=== PATIENT | female | born 2005 | race Caucasian/White ===

== ENCOUNTER 2024-02-13 15:25 | Outpatient (AMB) | payer BC, SELFPAY ==
--- NOTE | 2024-02-13 15:31 | AM.OFFWIN_ITS ---
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 She states sometimes the cough is dry and sometimes it is productive, when it is productive she coughs a greenish colored sputum. She denies any fevers, ear pain, sinus pain; she says sometimes when she coughs it does give her a headache She states nobody at home is sick. She has not tested for COVID. She has been taking Mucinex twice a day. She denies a history of asthma and is not a current smoker. She states she has been using a Ventolin inhaler that she borrowed from her mother and it seems to help at least for a couple of hours. She does not have a nebulizer machine at home. [facility] Social History Patient Tobacco Use Status: Never used Tobacco Review of Systems Const All systems reviewed & are unremarkable except as noted in HPI and below Physical Exam Const General: cooperative, healthy appearing, comfortable and no acute distress Orientation/consciousness: patient oriented x3 Limitations: no limitations HEENT Head: Yes normal to inspection Ears: hearing grossly normal bilaterally, external ears normal and TM's normal bilaterally General nose exam: Normal external nose present, Normal nares present and No nasal discharge present Face and sinus: Yes normal facial exam and Yes sinuses nontender Mouth: Normal oral and palatal mucosa present and moist mucous membranes Throat: Yes tonsils normal, Yes uvula midline and Yes posterior oropharynx abnormal (Erythema) Eyes General: appearance normal, both eyes and all related structures Neck Neck: Yes normal visual inspection Resp Effort & Inspection: normal respiratory effort, able to speak in complete sentences, no respiratory distress, not tachypneic, no tripod positioning and no use of accessory muscles Auscultation: wheezes expiratory wheezes, inspiratory wheezes, scattered wheezes and throughout Cardio Rate: regular rate Rhythm: regular rhythm Heart sounds: normal S1 and S2 Skin General skin exam: no rashes or lesions noted Neuro General: patient oriented x3 Extrem General: Yes normal to inspection and Yes no clubbing, cyanosis or edema Office Procedures Nebulizer Treatment Nebulizer Treatment [id number]-Ntseyzsyh/MDI RX initial, or Nebulizer Subsequent Treatment Nebulizer Treatment Nebulizer Treatment 80017-Rmyesueyx/MDI RX initial, or Nebulizer Subsequent Treatment Office Meds ipratropium 0.5 mg-albuterol 3 mg (2.5 mg base)/3 mL nebulization soln Performing Provider: Isabelle Bills PA-C Performing Location: [facility] Administered by: Isabelle Bills PA-C on 02/13/24 15:50 Dose Route Admin Location Dispensed Lot Number Expiration Date NDC Wet Roller 3 mL inhalation office 3 mL [id number] 06/26/25 95501-823-79 [employer] Assessment & Plan Assessment & Plan (1) Lower respiratory infection (e.g., bronchitis, pneumonia, pneumonitis, pulmonitis): Code(s): J22 - Unspecified acute lower respiratory infection Plan: Vital signs are stable patient is well-appearing however lung sounds were very wheezy both inspiratory and expiratory so I did give a DuoNeb in office with great relief. Also sending respiratory panel. Sent prednisone burst and ventolin inhaler, patient should continue to use her Ventolin inhaler as needed Plan See above Orders: Orders AMB Nebulizer Treatment Today J22 - Unspecified acute lower respiratory infection Resp Pathogen Panel - [facility] Today J06.9 - Acute upper respiratory infection, unspecified Medications: New prednisone 40 mg (2 x 20 mg) PO DAILY 10 tabs 0RF albuterol sulfate 90 mcg/actuation (Ventolin HFA) 2 puffs inhalation Q4-6H PRN 8.5 grams 0RF shortness of breath or wheezing Coding Level of Care Code New Pt Level 4 (36040) Diagnoses Lower respiratory infection (e.g., bronchitis, pneumonia, pneumonitis, pulmonitis) J22 CPT Codes Nebulizer Treatment - Nebulizer Treatment, initial or subsequent: 42789- Nebulizer/MDI RX initial, or Nebulizer Subsequent Treatment ([id number]) Nebulizer Treatment - Nebulizer Treatment, initial or subsequent: [id number]-Bfsdufbx r/MDI RX initial, or Nebulizer Subsequent Treatment ([id number])
[2024-02-13 15:33] VITALS: BP 118/70; PULSE 83; TEMP 36.9; O2SAT 98; BMI 27.5
== END 2024-02-13 16:09 | disposition home or self-care (01) ==
PROVIDERS: PCP Pediatrics; Visit Provider Physician Assistant
DX: J22 Unspecified acute lower respiratory infection (principal)

== ENCOUNTER 2024-07-14 14:45 | Outpatient (AMB) | payer BC, SELFPAY ==
[2024-07-14 15:06] VITALS: BP 114/70; PULSE 81; TEMP 36.8; O2SAT 97; BMI 30.3
--- NOTE | 2024-07-14 15:06 | MHC.OFFWIV ---
Intake Vital Signs 07/14/24 15:06 Height 5 ft 4 in Weight 176 lb 6 oz BMI 30.3 BP 114/70 Blood Pressure Location Lt brachial Position Sitting Pulse 81 Pulse Source Pulse Oximeter Temp 98.2 F Temp Source Oral Pulse Oximetry (%) 97 Oxygen Delivery Method Room Air Intake Visit Reasons: EP-skin irritation Intake Note: Pt presents to the office today for c/o skin irritation on her left wrist. Pt states she noticed it last night but denies any itchiness. Pt states where the irritation is is where she wears her apple watch. Patient Tobacco Use Status: Never used Tobacco Allergies No Known Allergies Allergy (Verified 07/14/24 15:06) Medication List - Last Reconciled 07/14/24 by Linda Jaffe MD albuterol sulfate 90 mcg/actuation (Ventolin HFA) 2 puffs inhalation Q4-6H PRN methylphenidate HCl ER 36 mg PO QAM norelgestromin-ethin.estradiol 150-35 mcg/24 hr (Zafemy) patches transdermal HPI EP-skin irritation HPI Details History - The patient is a 18-year-old female presenting with skin irritation. - The irritation began a couple of days ago and is localized to the area where her watch strap is worn. - She reports dry skin as a general condition. - There is no associated pruritus noted by the patient. 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 Problem List - Contact dermatitis - Possible fungal infection Patient Instructions - Apply the prescribed cream nightly until the rash resolves. - If the rash recurs, take a one-week break and then reapply the cream for two weeks. - Discontinue use once the rash is cleared. Review of Systems - General: No fever no chills - Neurological: No headaches no dizziness - Ear nose throat: No sore throat no hearing difficulty no ear pain - Cardiovascular: No syncope, no chest pain, no palpitations - Gastrointestinal: No nausea vomiting or diarrhea Physical Exam General: No acute distress HEENT: No acute findings Neck: Supple Respiratory system: Able to talk in full sentences, Extremities: No new findings OPHTHALMOLOGIST RETINA SPECIALIST: Alert awake oriented x3 motor sensory intact Skin: Irritation noted left wrist anterior aspect round patch size of quarter and smaller next to it, PFSH Social History Patient Tobacco Use Status: Never used Tobacco Physical Exam Vital Signs: Last Vital Signs Temp 98.2 F 07/14/24 15:06 Pulse 81 07/14/24 15:06 BP 114/70 07/14/24 15:06 Pulse Ox 97 07/14/24 15:06 Oxygen Delivery Method Room Air 07/14/24 15:06 BMI result Body Mass Index 30.3 Assessment & Plan Assessment & Plan (1) Skin rash: Code(s): R21 - Rash and other nonspecific skin eruption Plan History - The patient is a 18-year-old female presenting with skin irritation. - The irritation began a couple of days ago and is localized to the area where her watch strap is worn. - She reports dry skin as a general condition. - There is no associated pruritus noted by the patient. 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 Problem List - Contact dermatitis - Possible fungal infection Patient Instructions - Apply the prescribed cream nightly until the rash resolves. - If the rash recurs, take a one-week break and then reapply the cream for two weeks. - Discontinue use once the rash is cleared. Medications: New clotrimazole-betamethasone 1-0.05 % 1 appl topical ONCE 30 days 45 grams 0RF Coding Level of Care Code Est Pt Level 3 (65375) Diagnoses Skin rash R21
--- OUTSIDE RECORDS SUMMARY | 2024-07-14 17:32 | XMS_ITS | Clinical Summary ---
Author Organization [facility] Address [address] [place] [phone] Phone Care Team Providers Care Outsole Cementer Machine Name Role Phone Tracie Bill MD Primary Care Provider [phone] Allergies Active Allergy Reactions Criticality Noted Date Comments Pineapple Hives 09/19/2022 Medications lactase 3000 units tablet Take 3,000 Units by mouth 3 (three) times a day with meals. Active norelgestromin-et hinyl estradiol (Zafemy) 150-35 MCG/24HRIndicatio ns:DUB (dysfunctional uterine bleeding) Place 1 patch on the skin once a week. 3 patch 12 4 Active albuterol HFA 108 (90 Base) MCG/ACT inhalerIndication s:Mild intermittent asthma without complication INHALE 2 PUFFS INTO THE LUNG EVERY 4 HOURS NEEDED FOR WHEEZING 18 g 4 Active valACYclovir 500 MG tabletIndications :Recurrent herpes labialis Take 1 tablet (500 mg total) by mouth 2 (two) times a day. 1 tablet 5 Active Methylphenidate HCl ER 36 MG tablet sustained-release 24 hourIndications:A ttention deficit hyperactivity disorder (ADHD), predominantly inattentive type Take 36 mg by mouth every morning. 30 tablet 5 08/02/19 25 Active Methylphenidate HCl ER 36 MG tablet sustained-release 24 hourIndications:A ttention deficit hyperactivity disorder (ADHD), predominantly inattentive type Take 36 mg by mouth every morning. 30 tablet 5 07/03/19 25 Discontin ued(Reord er) Active Problems Problem Noted Date Diagnosed Date Chronic upper back pain 11/20/2022 Overview (11/26/2023): Last Assessment & Plan: Flipped off of horse 2011 and upper back has bothered her since then and is getting worse. Lower back improved with pt but still with upper back pain. -referred to [facility] for further eval/w/u Attention deficit hyperactiv ity disorder (ADHD), predominantly inattentive type 07/17/2022 Overview (01/06/2024): 08/19-concerta 18mg 09/18-increased concerta 36mg Assessment & Plan (01/06/2024 2:14 PM EDT): Doing amazing on the concerta still. No longer struggling to pay attention, concentrate, focus to get her work done, and keep up. Helping her at home and at work! Much less anxious now as result b/c she can be more productive. Appetite and sleep are baseline. taking it most days unless gets up late and doesn't have a lot going on. Carrying her through her day at work-lasts about 10 hrs -cont concerta 36mg daily prn; feels like this is a good dose for now -cont to work on behavioral strategies -cont to work on regular meals and sleep schedule -cont with weekly counseling -fu 3 months or sooner if concerns Mild intermittent asthma without complication Overview (11/26/2023): Uses 2020 with pneumonia Last Assessment & Plan: Used mom's inhaler over winter when went to barn b/c chest tightness and wheezing. No sob, wheezing, cough with activity, sleep or at barn in months -cont albuterol every 4 hours prn -sx therapy -call if sxs or albuterol use>2x/wk or other concerns Weight loss 01/30/2021 Overview (11/26/2023): Last Assessment & Plan: Lost 14 pounds in about 3 weeks- teen notes more active job and also sick off and on for weeks Reports eating 3 meals daily, no restriction Continue healthy balanced diet Recommend recheck in 1-2 months with ADHD med recheck but sooner if concerns Teen in agreement of plan Recurrent herpes labialis 10/15/2019 Overview (11/26/2023): Last Assessment & Plan: Went a really long time w/o it but if bites her lips she tends to get them, certain lip products or doesn't use sunscreen on her lips. Valtrex is helping and shortens them. Gets them 1x every 2 months -cont valcyclovir 500mg bid for 3 days at first signs (even if mild) -avoid triggers miguel sun exposure as much as possible -ok to cont abreva topically prn -call if becomes more frequent or other concerns DUB (dysfunctional uterine bleeding) 05/22/2018 Overview (11/26/2023): 05/17-menses monthly but heavy bleeding and cramps w/ prolonged bleeding; nl cbc and tfs 01/14; start ocp 09/14-not much better with breakthrough bleeding; changed to orthotricycline 07/16-lot of bleeding btwn and prolonged on orthotricyclen; nl labs; to switch to ocella; if persists after 3 month on, will refer signal repairer 08/18-wants to switch to the patch b/c can't remember to take ocps consistently Last Assessment & Plan: Doing well on patch and remembering to change it. due for menses for first time on it next wk. Not interested in implanon or iud at this point -cont with orthoevera -cont condom use -will cont to monitor Fatigue 02/17/2018 Overview (11/26/2023): 02/13-since end november; ?etiology; labs nl 05/17-still tired, hasn't worked on sleep hygiene; napping still; not wearing hearing aid Last Assessment & Plan: Still tired but not as bad as it was -reassurance -cont to work on regular sleep schedule -labs as ordered -fu pending results Anxiety 05/13/2017 Overview (01/06/2024): Noted 05/16-most likely situational due to parental separation and brother/Dad discord Assessment & Plan (01/06/2024 2:12 PM EDT): Anxiety has been really good. Some days feels jittery miguel if has coffee and meds only - is really noticeable if goes to therapy or if goes to a place with lots of people (like 's recently with students back). Seeing Sushila weekly - helping. At [facility] [place]. Feels wonderful to have a quiet mind -see plan re: adhd -cont to work on behavioral strategies -continue weekly counseling -will monitor closely but consider further management if continues to be an issue despite focus improving Migraine without aura and wi thout status migrainosus, not intractable 05/13/2017 Overview (11/26/2023): 05/16: first noted Last Assessment & Plan: Very rarely happen at this point!!! Often more if dehydrated. Ibuprofen helps -cont with regular exercise, sleep schedule and push fluids -ibuprofen prn -call if sxs worsen Allergic rhinitis 04/08/2017 Overview (11/26/2023): 07/13-zyrtec prn Last Assessment & Plan: Stuffy all the time. Takes zyrtec daily over past several months. Ears bother on and off Spring can be the worse -flaring a bit now. ?allergic to hay - sneezes a lot and gets congested miguel if doing chores at barn. Zyrtec doesn't seem to be helping as much -cont allergy control measures -increase zyrtec to 1-2x/day prn; if still not helping; trial of claritan or roman to see if works better the zyrtec -call if sxs worsen or other concerns Decreased visual acuity 04/08/2017 Overview (11/26/2023): Wears glasses Last Assessment & Plan: Stable -cont with glasses -fu with eye doctor - overdue and to call to schedule Lactose intolerance 04/08/2017 Overview (11/26/2023): 07/13-uses lactaid Last Assessment & Plan: Not using lactaid regularly. Sometimes bothers her if has lot of ice cream. Does fine with cheese; doesn't consume a lot of dairy in general -cont lactose in small quantities as tolerated -lactaid pills prn -recommended calcium supplement with vit d -call if sxs worsen Sensorineural hearing loss (SNHL) of left ear Overview (11/26/2023): Hearing aid in left ear Last Assessment & Plan: Hasn't been in awhile. Not wearing hearing aids. per mom misses 30% of what people say. -encouraged her to use hearing aid and FM system if she has issues hearing -fu with audiology at [facility]-to schedule as hasn't been in several years -will cont to monitor and support Encounters Date Type Department Care Team Description 07/02/2024 Refill [facility] - [address] [address] Tracie Bill MD Attention deficit hyperactivity disorder (ADHD), predominantly inattentive type 05/21/2024 Telephone [facility] - [address] [address] Tracie Bill MD pls re-send ADHD med, patient was able to find it . 05/19/2024 Refill [facility] [address] [address] Tracie Bill MD Attention deficit hyperactivity disorder (ADHD), predominantly inattentive type 05/04/2024 Refill [facility] [address] [place] [address] Tracie Bill MD Recurrent herpes labialis (Primary Dx) from Last 3 Months Immunizations Immunization Administration Dates Next Due DTaP 09/16/2008, 5,02/24/2004,12/26,2003 HPV, Quadrivalent 12/06/2016,03/19/2016,02/14/20 16 Hep A, ped/adol 12/06/2016,03/19/2016 Hep B, ped/adol 02/24/2004,2003,2003 Hib (PRP-T) 11/28/2004, 4,2003,10/25 Influenza, injectable, quadrivalent 03/02/2015 Influenza, injectable, quadr ivalent, preservative free 05/05/2021,04/20/2020,07/09/2019,03/14,02/14/2016 Influenza, injectable, trivalent 02/03/2013,11/09/2011,02/10/2009 Influenza, injectable, triva lent, preservative free 02/19/2014 MMR 03/13/2005,11/28/2004 Meningococcal Conj (Menactra) MCV4P 04/20/2020,0 08/30/2015 Pneumococcal Conjugate 03/13/2005,2003,2003,10/25 Polio 09/16/2008, 4,2003,10/25 Tdap 09/01/2014 Varicella 11/28/2011,03/13/2005 Social History Tobacco Use Types Packs/Day Years Used Date Smoking Tobacco: Never Assessed Comments Unknown Sex and Gender Information Value Date Recorded Sex Assigned at Not on file Legal Sex Female 4:28 PM EDT Gender Identity Not on file Sexual Orientation Not on file Last Filed Vital Signs Vital Sign Reading Time Taken Comments Blood Pressure 116/71 01/06/2024 1:47 PM EDT Pulse 96 01/06/2024 1:47 PM EDT Temperature 37.1 ??C (98.7 ??F) 01/06/2024 1:47 PM ED T Respiratory Rate - - Oxygen Saturation - - Inhaled Oxygen Concentration - - Weight 75 kg (165 lb 6.4 oz) 01/06/2024 1:47 PM EDT Height - - Body Mass Index - - Plan of Treatment Health Maintenance Due Date Last Done Comments Men B Vaccine (1 of 2 - Standard) 2019 Influenza Vaccines (#1) 2023 05/05/19, 04/20/2020, 07/09/2019, Additional history exists COVID-19 Vaccine (3 - 2023-2 5 season) 2023 08/28/2020, 08/06/2020 Chlamydia and Gonorrhea Screening 04/29/2024 DTaP,Tdap,and Td Vaccines (7 - Td or Tdap) 09/01/2024 09/01/2014, 09/16/2008, 11/28/2004, Additional history exists Hepatitis B Vaccines Completed 02/24/2004, 2003, 2003 HIB Vaccines Completed 11/28/2004, 01/28, 2003, Additional history exists MMR Vaccines Completed 03/13/2005, 11/28/2004 Pneumococcal Vaccine Completed 03/13/2005, 02/24/2004, 2003, Additional history exists IPV Vaccines Completed 09/16/2008, 01/28, 2003, Additional history exists Varicella Vaccines Completed 11/28/2011, 03/13/2005 HPV Vaccines Completed 12/06/2016, 02/28, 02/14/2016 Hepatitis A Vaccines Completed 12/06/2016, 03/19/20 16 Meningococcal Vaccine Completed 04/20/2020, 016 Insurance [facility] PPO Care Teams Outsole Cementer Machine Relationship Specialty Start Date End Date Tracie Bill MD [address] [place] [id number] PCP - General Pediatrics 11/26/23
--- OUTSIDE RECORDS SUMMARY | 2024-07-14 17:32 | XMS_ITS | Encounter Summary ---
Author Organization [facility] Address [address] [place] [address] Phone Care Team Providers Care Automobile Bumper Straightener Name Role Phone Tracie Bill MD Primary Care Provider [phone] Reason for Visit * Reason Onset Date Comments Med Refill 07/02/2024 Encounter Details Date Type Department Care Team (Late st Contact Info) Description 07/02/2024 Refill [facility] - [place] [address] [place] [address] Tracie Bill MD [address] [place] [address] Attention deficit hyperactivity disorder (ADHD), predominantly inattentive type Social History Tobacco Use Types Packs/Day Years Used Date Smoking Tobacco: Never Assessed Comments Unknown Sex and Gender Information Value Date Recorded Sex Assigned at Not on file Legal Sex Female 4:28 PM EDT Gender Identity Not on file Sexual Orientation Not on file documented as of this encounter Miscellaneous Notes * Telephone Encounter - Cleo Lira LPN - 07/02/2024 4:58 PM EST Refill requested for Berna???s: Methylphenidate HCl ER 36 MG tablet sustained-release 24 hour Refill request source: Phone call-- parent/guardian This medication was last refilled on 05/21/24. Last medication check or well visit: 01/06/24 Next appointment scheduled on none. An office visit is recommended. If visit recommended, message sent to appointment pool. [id number] - [place], [place] - [address] [place] [address] PCP: Tracie Bill MD documented in this encounter Plan of Treatment Not on file documented as of this encounter Visit Diagnoses Diagnosis Attention deficit hyperactivity disorder (ADHD), predominantly inattentive type documented in this encounter Care Teams Automobile Bumper Straightener Relationship Specialty Start Date End Date Tracie Bill MD [address] [place] [address] PCP - General Pediatrics 11/26/23 documented as of this encounter
== END 2024-07-14 15:28 | disposition home or self-care (01) ==
PROVIDERS: PCP Pediatrics; Visit Provider Internal Medicine
DX: R21 Rash and other nonspecific skin eruption (principal)

== ENCOUNTER 2024-12-14 15:16 | Outpatient (AMB) | payer BC, SELFPAY ==
[2024-12-14 15:22] VITALS: BP 124/70; PULSE 83; TEMP 36.8; O2SAT 98; BMI 29.6
--- NOTE | 2024-12-14 15:22 | MHC.OFFWIV ---
Intake Vital Signs 12/14/24 15:22 Height 5 ft 4 in Weight 172 lb 8 oz BMI 29.6 BP 124/70 Blood Pressure Location Rt brachial Position Sitting Pulse 83 Pulse Source Pulse Oximeter Temp 98.3 F Temp Source Oral Pulse Oximetry (%) 98 Oxygen Delivery Method Room Air Intake Visit Reasons: EP Abdominal pain Patient Tobacco Use Status: Never used Tobacco Alloy Weigher Required: No Is last menstrual period known: Yes Last menstrual period: 12/12/24 Post menopausal: No Patient : No Allergies No Known Allergies Allergy (Verified 12/14/24 15:25) Do you need a note to return to daycare/school/sports/work: Yes HPI HPI Comments History of Present Illness Details History - The patient is a 19-year-old female presenting with diarrhea and concerns about possible copper toxicity. - Diarrhea began 5 days ago, described as watery and brown, without fever or mental status changes. - Consumed water potentially high in copper for 2-3 days, possibly contributing to symptoms. - Experienced nausea without vomiting, though gagging was noted. - History of sensitive stomach, managed with bland diet and hydration. - Took Imodium two days ago, with symptoms mostly resolved but abdominal pain continues. - Reported menstrual pain x3 days Physical Exam General: Cooperative, healthy appearing, comfortable, no acute distress and well developed Orientation: Patient oriented x3 Limitations: No limitations Head: Normal to inspection Ears: Hearing grossly normal bilaterally Nose: Normal External nose present Face and sinus: Normal facial exam Mouth: normal, moist oral mucosa Eyes: Appearance normal, both eyes and all related structures Neck: Normal visual inspection and Yes full ROM Respiratory: Normal respiratory effort and able to speak in complete sentences. Skin: no rashes or lesions noted Neuro: Patient oriented x3 Extremities: moving all extremities normally [facility] Social History Patient Tobacco Use Status: Never used Tobacco Patient : No Female Reproductive History Menstrual Date of last menstrual period: 12/12/24 Review of Systems Const All systems reviewed & are unremarkable except as noted in HPI and below Physical Exam Vital Signs: Last Vital Signs Temp 98.3 F 12/14/24 15:22 Pulse 83 12/14/24 15:22 BP 124/70 12/14/24 15:22 Pulse Ox 98 12/14/24 15:22 Oxygen Delivery Method Room Air 12/14/24 15:22 BMI result Body Mass Index 29.6 Assessment & Plan Assessment & Plan (1) Diarrhea: Code(s): R19.7 - Diarrhea, unspecified Qualifiers: Diarrhea type: unspecified type Qualified Code(s): R19.7 - Diarrhea, unspecified Plan: Plan Patient was informed and verbally consented to the use of an ambient scribe for clinic note documentation during this visit Diarrhea - Conduct a gastrointestinal panel to rule out infectious causes such as Giardia as 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 - Maintain hydration and follow a bland diet to support recovery. - Avoid water suspected of high copper content and monitor symptoms. Orders: Orders GI Panel Today R19.7 - Diarrhea, unspecified Coding Level of Care Code New Pt Level 3 (99010) Diagnoses Diarrhea, unspecified type R19.7 Diarrhea type: unspecified type
--- OUTSIDE RECORDS SUMMARY | 2024-12-14 15:49 | XMS_ITS | Clinical Summary ---
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 18 g 3 Active ZAFEMY 150-35 mcg/24 hr APPLY 1 PATCH TO SKIN ONCE WEEKLY FOR 3 WEEKS ON, THEN 1 WEEK OFF DIRECTED 9 patch 3 3 Active valACYclovir (VALTREX) 500 MG tabletIndications :Recurrent herpes labialis TAKE 1 TABLET(500 MG) BY MOUTH TWICE DAILY FOR 3 DAYS 6 tablet 3 3 Active methylphenidate HCl 36 MG ER tabletIndications :Attention deficit hyperactivity disorder (ADHD), predominantly inattentive type Take 1 tablet (36 mg total) by mouth every morning. 30 tablet 4 Active hydrOXYzine (ATARAX) 25 MG tablet Take 1/2 to max 2 tablets as needed for situational anxiety or anxiety related insomnia. 5 026 Active clotrimazole-beta methasone (LOTRISONE) cream APPLY TOPICALLY TO THE AFFECTED AREA ONCE FOR 30 DAYS DIRECTED 5 Active Active Problems Problem Noted Date Diagnosed Date Need for immunization against rabies 09/05/2024 Chronic upper back pain 11/20/2022 Assessment & Plan (11/20/2022 11:03 PM EDT): Flipped off of horse 2011 and upper back has bothered her since then and is getting worse. Lower back improved with pt but still with upper back pain. -referred to [facility] for further eval/w/u Attention deficit hyperactiv ity disorder (ADHD), predominantly inattentive type 07/17/2022 Overview (09/19/2022): 08/19-concerta 18mg 09/18-increased concerta 36mg Assessment & Plan (06/28/2023 12:01 AM EST): Doing amazing on the concerta. No longer struggling to pay attention, concentrate, focus to get her work done, and keep up. Helping her at home and at work! Much less anxious now as result b/c she can be more productive. Appetite and sleep are baseline. Taking prn but overall feels better if she takes it and not sure how she survived w/o it. Carrying her through her day at work. Sometimes last few minutes can be hard but gets through it. -cont concerta 36mg daily prn; feels like this is a good dose for now -monitor at new job and if really struggling at end of day to let me know -cont to work on behavioral strategies -cont to work on regular meals and sleep schedule -fu 3 months or sooner if concerns Assessment & Plan (03/20/2023 4:50 PM EST): Doing amazing on the concerta. No longer struggling to pay attention, concentrate, focus to get her work done, and keep up. Helping her at home and at work! Much less anxious now as result b/c she can be more productive. Appetite and sleep are baseline. Taking prn but overall feels better if she takes it and not sure how she survived w/o it. Is starting a new job and will be 9 hr days. Worried it won't last long enough -cont concerta 36mg daily prn; feels like this is a good dose for now -monitor at new job and if really struggling at end of day to let me know -cont to work on behavioral strategies -cont to work on regular meals and sleep schedule -fu 3 months or sooner if concerns Assessment & Plan (11/20/2022 11:00 PM EDT): Doing amazing on the concerta. Taking nearly daily. No longer struggling to pay attention, concentrate, focus to get her work done, and keep up. Helping her at home and at work! Much less anxious now as result b/c she can be more productive. Appetite and sleep are baseline. Taking prn but overall feels better if she takes it and not sure how she survived w/o it. -cont concerta 36mg daily prn; feels like this is a good dose for now -cont to work on behavioral strategies -cont to work on regular meals and sleep schedule -fu 3 months or sooner if concerns Assessment & Plan (09/19/2022 9:40 PM EDT): Doing amazing on the concerta. No longer struggling to pay attention, concentrate, focus to get her work done, and keep up. Helping her at home and at work! Much less anxious now as result b/c she can be more productive. Appetite and sleep are baseline. Taking prn but overall feels better if she takes it and not sure how she survived w/o it. -cont concerta 36mg daily prn; feels like this is a good dose for now -cont to work on behavioral strategies -cont to work on regular meals and sleep schedule -fu over summer for [employer] (was due 09/18) or sooner if concerns Assessment & Plan (07/17/2022 11:13 PM EDT): Struggling to pay attention, concentrate, focus to get her work done, and keep up. Leads to increased anxiety which leads to more trouble concentrating. Didn't do well first semester and struggling 2nd semester so stopped. Has always struggled with focus miguel senior year and this year when structure as less. Has had iep or 504 plan with more individual support d/t hearing loss. Still struggled this year when did online classes vs in person. +fh of adhd. sxs c/w adhd-inattentive type -natl history and diagnosis reviewed -given how much she is struggling opted to trial meds and see how she does. If continues to struggle, consider neuropsych testing to evaluate further -start concerta 18mg daily ;risks/benefits/side effects reviewed -to fu with next day if doesn't like and if does well then to give daily And update me in a week Mild intermittent asthma without complication Overview (09/13/2021): Uses 2019 with pneumonia Assessment & Plan (11/20/2022 11:00 PM EDT): Used mom's inhaler over winter when went to barn b/c chest tightness and wheezing. No sob, wheezing, cough with activity, sleep or at barn in months -cont albuterol every 4 hours prn -sx therapy -call if sxs or albuterol use>2x/wk or other concerns Assessment & Plan (09/13/2021 10:18 PM EDT): Hasn't needed inhaler in awhile. Used when had pneumonia in 2019 and occ if allergies are really bothering her -albuterol every 4 hrs prn -sx therapy -call if worsening sxs or albuterol use >2x/wk or other concerns Weight loss 01/30/2021 Assessment & Plan (04/12/2023 8:22 PM EST): Lost 14 pounds in about 3 weeks- teen notes more active job and also sick off and on for weeks Reports eating 3 meals daily, no restriction Continue healthy balanced diet Recommend recheck in 1-2 months with ADHD med recheck but sooner if concerns Teen in agreement of plan Assessment & Plan (11/20/2022 10:59 PM EDT): Has gained weight - ?b/c anxiety and adhd are better. -will cont to monitor Assessment & Plan (09/19/2022 9:42 PM EDT): Weight has improved despite stimulants -cont to work on 3 meals and snacks prn -cont to work on regular exercise and healthy lifestyle -fu at [employer] over summer or sooner if concerns Assessment & Plan (09/13/2021 10:19 PM EDT): Has lost 37lbs since 06/18 and 20lb since 07/17. Not binge eating and was under lot of stress at home with brother being there and some of his eating habits. Feels like she has just been eating healthier, more active and not stress/binge eating. -reinforced healthy eating and activity -will cont to monitor closely Assessment & Plan (01/30/2021 11:15 PM EDT): Has lost 37lbs since 06/18 and 20lb since 07/17. Not binge eating and was under lot of stress at home with brother being there and some of his eating habits. Feels like she has just been eating healthier, more active and not stress/binge eating. -to get labs as ordered -fu in 1 month for wt check or sooner if concerns Recurrent herpes labialis 10/15/2019 Assessment & Plan (11/20/2022 2:36 PM EDT): Went a really long time w/o it [...] if becomes more frequent or other concerns Assessment & Plan (09/13/2021 2:39 PM EDT): Went a really long time w/o it but if bites her lips she tends to get them. Valtrex is helping and shortens them. Gets them 1x every 2 months -cont valcyclovir 500mg bid for 3 days at first signs (even if mild) -avoid triggers miguel sun exposure as much as possible -ok to cont abreva topically prn -call if becomes more frequent or other concerns Assessment & Plan (07/20/2020 3:05 PM EDT): Valtrex is helping and shortens them. Gets them 1x every 2 months -cont valcyclovir 500mg bid for 3 days at first signs (even if mild) -avoid triggers miguel sun exposure as much as possible -ok to cont abreva topically prn -call if becomes more frequent or other concerns Assessment & Plan (10/15/2019 11:58 AM EDT): History and pictures c/w herpes labialis which has been recurring multiple times over past several months with only brief period of no blisters -recommended trial of valcyclovir 500mg bid for 3 days -d/w mom that will need to start at first signs (even if mild) -avoid triggers miguel sun exposure as much as possible -d/w mom natl history -if continues to have frequent outburts, then may need to go on daily therapy -to keep diary of sxs and med uses -fu in next 1-2 months with an update or sooner if sxs worsen -ok to cont abreva topically prn DUB (dysfunctional uterine bleeding) 05/22/2018 Overview (2021): 05/17-menses monthly but heavy bleeding and cramps w/ prolonged bleeding; nl cbc and tfs 01/14; start ocp 09/14-not much better with breakthrough bleeding; changed to orthotricycline 07/16-lot of bleeding btwn and prolonged on orthotricyclen; nl labs; to switch to ocella; if persists after 3 month on, will refer cardiopulmonary technologist chief 08/18-wants to switch to the patch b/c can't remember to take ocps consistently Assessment & Plan (11/20/2022 10:59 PM EDT): Doing well on patch and remembering to change it. due for menses for first time on it next wk. Not interested in implanon or iud at this point -cont with orthoevera -cont condom use -will cont to monitor Assessment & Plan (09/13/2021 10:22 PM EDT): Doing well so far on patch and remembering to change it. due for menses for first time on it next wk. Not interested in implanon or iud at this point -cont with orthoevera -recommended condoms for first month on (but encouraged all the time -will cont to monitor Assessment & Plan (2021 11:03 PM EDT): Wants to go on patch b/c hard to remember to take ocps consistently and that throws her cycle and mood off. Not interested in implanon or iud at this point -risks/benefits/side effects reviewed -to start patch this Saturday and change every Saturday for 3 wks; on 4 wk to remove and will get menses that week and then restart a new cycle -recommended condoms for first month on (but encouraged all the time -fu in 1 month at [employer] or sooner if concerns Assessment & Plan (01/30/2021 10:59 PM EDT): Doing much better on this ocp but not taking consistently or forgets a lot Heavy first couple of days but not lasting as long and not spotting. Mild cramps. Wants to switch to something she might remember to take more readily - ?the patch -discussed patch vs implanon/nexplanon vs iud/mirena -risks/benefits/side effects of each reviewed - Berna isn't sure which she wants to do -cont with ocps for now (just started new packet yesterdA) -strategies to remember taking it reviewed -referred to [email or web address] -recommended appt with cardiopulmonary technologist chief to discuss options as well -to call back if she'd like to pursue cardiopulmonary technologist chief appt or other questions/concerns Assessment & Plan (07/20/2020 10:21 PM EDT): Doing much better on this ocp. Heavy first couple of days but not lasting as long and not spotting. Mild cramps -cont with current ocp -call if sxs worsen or other concerns Assessment & Plan (07/09/2019 9:43 PM EDT): Still getting heavy, prolonged, frequent bleeding on orthotricyclen. Not missing doses. No sa. No fh of bleeding disorders. No fh of PCOS or endometriosis. Mom w/ h/o ovarian cysts. Off ocps x 2wks -will check cbc, tfts, lh/fsh, prolactin, testosterone, PT/PTT; will call mom w/ results -cont to keep track of bleeding in her tracker -consider u/s pending labs -will refer to cardiopulmonary technologist chief for further eval and plan Assessment & Plan (09/01/2018 11:52 PM EDT): Not much better on aviane with breakthrough bleeding, dysmenorrhea continues and still with heavy flow -will switch to orthotricyclen -instructed on Saturday start -sx therapy -discussed missed dose/catch-up -ibuprofen 400-800mg every 6 hrs prn -encourage lots of water, heating pad -cont to keep calender of sxs -fu in 3 months Assessment & Plan (05/22/2018 10:16 PM EST): -natl history reviewed -wants to start ocps -risks, benefits, side effects reviewed -start aviane with Saturday closest to start of menses -discussed missed dose/catch-up -ibuprofen 400-800mg every 6 hrs prn -encourage lots of water, heating pad -cont to keep calender of sxs -fu in 3 months Fatigue 02/17/2018 Overview (05/22/2018): 02/13-since end of November; ?etiology; labs nl 05/17-still tired, hasn't worked on sleep hygiene; napping still; not wearing hearing aid Assessment & Plan (11/20/2022 11:01 PM EDT): Still tired but not as bad as it was -reassurance -cont to work on regular sleep schedule -labs as ordered -fu pending results Assessment & Plan (09/13/2021 10:23 PM EDT): Still tired but not as bad as it was -reassurance -cont to work on regular sleep schedule -call if sxs worsen Assessment & Plan (01/30/2021 11:01 PM EDT): Has felt tired and restless a lot lately. Sleep is at baseline. 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 -will check cbc, cmp, tfts, vit d -fu pending results -cont to work on sleep hygiene Assessment & Plan (07/09/2019 9:40 PM EDT): ?not wearing hearing aid is contributing to her fatigue. Also having heavy and prolonged and frequent menses. Mom w/ h/o hypothyroidism -encouraged her to wear her hearing aid -sleep hygiene as above -will check cbc, iron studies, tfts and call with results -discouraged napping to improve quality of sleep at night Assessment & Plan (05/22/2018 10:14 PM EST): ?not wearing hearing aid is contributing to her fatigue -encouraged her to wear her hearing aid -sleep hygiene as above -discouraged napping to improve quality of sleep at night Assessment & Plan (02/17/2018 10:57 PM EDT): Fatigue since end november. Unclear etiology. 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 No snoring or excessive limb movement -will check cbc, iron studies, tfts -discussed sleep hygiene as above -will call mom w/ lab results and determine further fu Migraine without aura and wi thout status migrainosus, not intractable 05/13/2017 Overview (05/13/2017): 05/16: first noted Assessment & Plan (11/20/2022 2:35 PM EDT): Very rarely happen at this point!!! Often more if dehydrated. Ibuprofen helps -cont with regular exercise, sleep schedule and push fluids -ibuprofen prn -call if sxs worsen Assessment & Plan (09/13/2021 2:41 PM EDT): Very rarely happen at this point!!! Often more if dehydrated. Ibuprofen helps -cont with regular exercise, sleep schedule and push fluids -ibuprofen prn -call if sxs worsen Assessment & Plan (07/20/2020 10:17 PM EDT): Very rarely happen at this point!!! Often more if dehydrated. Ibuprofen helps -cont with regular exercise, sleep schedule and push fluids -ibuprofen prn -call if sxs worsen Assessment & Plan (07/09/2019 11:15 AM EDT): Still gets them occasionally but not as often or severe as before. Often before her menses. Ibuprofen helps -cont with regular exercise, sleep schedule and push fluids -call if sxs worsen Assessment & Plan (09/01/2018 11:50 PM EDT): Hasn't had any recently -cont with regular exercise, sleep schedule and push fluids -call if sxs worsen Assessment & Plan (05/22/2018 10:11 PM EST): Hasn't had any recently -cont with regular exercise, sleep schedule and push fluids -call if sxs worsen Assessment & Plan (05/13/2017 2:03 PM EST): Long discussion with patient and Mom regarding management: Ibuprofen 400-600mg (liquid or liquid gels) plus caffeinated beverage at onset of headache (note given for school nurse to proceed with this plan if occurs at school as well) Keep sx diary F/u PRN increased/persistent sx Anxiety 05/13/2017 Overview (05/13/2017): Noted 05/16-most likely situational due to parental separation and brother/Dad discord Assessment & Plan (06/28/2023 12:00 AM EST): Anxiety has improved a lot now that she can get her work completed. Has some moments but overall is so much better and lot less debilitating and can label it -see plan re: adhd -cont to work on behavioral strategies -will monitor closely but consider further management if continues to be an issue despite focus improving Assessment & Plan (03/20/2023 4:50 PM EST): Anxiety has improved a lot now that she can get her work completed. Has some moments but overall is so much better and lot less debilitating and can label it -see plan re: adhd -cont to work on behavioral strategies -will monitor closely but consider further management if continues to be an issue despite focus improving Assessment & Plan (11/20/2022 2:20 PM EDT): Anxiety has improved a lot now that she can get her work completed. Has some moments but overall is so much better and lot less debilitating and can label it -see plan re: adhd -cont to work with therapist -cont to work on behavioral strategies -will monitor closely but consider further management if continues to be an issue despite focus improving Assessment & Plan (09/19/2022 9:41 PM EDT): Anxiety has improved a lot now that she can get her work completed -see plan re: adhd -cont to work with therapist -cont to work on behavioral strategies -will monitor closely but consider further management if continues to be an issue despite focus improving Assessment & Plan (07/17/2022 11:07 PM EDT): Has been more anxious lately miguel about school and completing work. Seems to be more b/c can't concentrate to get work done that then makes her anxious vs feeling anxious constantly leading to trouble concentrating. -see plan re: adhd -cont to work with therapist -cont to work on behavioral strategies -will monitor closely but consider further management if continues to be an issue despite focus improving Assessment & Plan (05/13/2017 2:04 PM EST): Recommend start therapy as soon as possible Allergic rhinitis 04/08/2017 Overview (02/13/2018): 07/13-zyrtec prn Assessment & Plan (11/20/2022 10:57 PM EDT): Stuffy all the time. Takes zyrtec daily [...] -call if sxs worsen or other concerns Assessment & Plan (09/13/2021 2:37 PM EDT): Seasonal. Spring can be the worse -flaring a bit now. ?allergic to hay - sneezes a lot and gets congested miguel if doing chores at barn. Zyrtec doesn't seem to be helping as much -cont allergy control measures -trial of claritan or roman to see if works better the zyrtec -call if sxs worsen or other concerns Assessment & Plan (07/20/2020 10:15 PM EDT): Seasonal. Spring can be the worse sometimes but did well last year. ?allergic to hay - sneezes a lot and gets congested miguel if doing chores at barn -cont allergy control measures -zyrtec prn -call if sxs worsen or other concerns Assessment & Plan (07/09/2019 11:05 AM EDT): Seasonal. Spring can be the worse; no sxs currently -cont allergy control measures -zyrtec prn -call if sxs worsen or other concerns Assessment & Plan (05/22/2018 10:05 PM EST): Seasonal -cont allergy control measures -zyrtec prn -call if sxs worsen or other concerns Decreased visual acuity 04/08/2017 Overview (02/13/2018): Wears glasses Assessment & Plan (11/20/2022 2:37 PM EDT): Stable -cont with glasses -fu with eye doctor - overdue and to call to schedule Assessment & Plan (09/13/2021 10:21 PM EDT): Stable -cont with glasses -fu with eye doctor as scheduled Assessment & Plan (07/20/2020 10:16 PM EDT): Stable -cont with glasses -fu with eye doctor as scheduled Assessment & Plan (07/09/2019 9:43 PM EDT): Stable -cont with glasses -fu with eye doctor as scheduled Assessment & Plan (05/22/2018 10:09 PM EST): Stable -cont with glasses -fu with eye doctor as scheduled Lactose intolerance 04/08/2017 Overview (02/13/2018): 07/13-uses lactaid Assessment & Plan (11/20/2022 2:23 PM EDT): Not using lactaid regularly. Sometimes bothers her if has lot of ice cream. Does fine with cheese; doesn't consume a lot of dairy in general -cont lactose in small quantities as tolerated -lactaid pills prn -recommended calcium supplement with vit d -call if sxs worsen Assessment & Plan (09/13/2021 10:23 PM EDT): Not using lactaid regularly. Sometimes bothers her if has lot of ice cream. Does fine with cheese; doesn't consume a lot of dairy in general -cont lactose in small quantities as tolerated -lactaid pills prn -recommended calcium supplement with vit d -call if sxs worsen Assessment & Plan (07/20/2020 2:57 PM EDT): Not using lactaid regularly. Sometimes bothers her if has lot of ice cream. Does fine with cheese; doesn't consume a lot of dairy in general -cont lactose in small quantities as tolerated -lactaid pills prn -recommended calcium supplement with vit d -call if sxs worsen Assessment & Plan (07/09/2019 11:04 AM EDT): Not using lactaid regularly. Sometimes bothers her if has lot of ice cream -cont lactose in small quantities as tolerated -lactaid pills prn -recommended calcium supplement with vit d -call if sxs worsen Assessment & Plan (05/22/2018 10:07 PM EST): Uses lactaid before ice cream and milk only; ok w/ yogurt and cheese -cont lactose in small quantities as tolerated -lactaid pills prn -recommended calcium supplement with vit d -call if sxs worsen Sensorineural hearing loss (SNHL) of left ear Overview (02/13/2018): Hearing aid in left ear Assessment & Plan (11/20/2022 10:58 PM EDT): Hasn't been in awhile. Not wearing hearing aids. per mom misses 30% of what people say. -encouraged her to use hearing aid and FM system if she has issues hearing -fu [facility] audiology at [facility]-to schedule as hasn't been in several years -will cont to monitor and support Assessment & Plan (07/17/2022 11:09 PM EDT): Currently refusing to wear hearing aid b/c she feels like she hear ok; per mom misses 30% of what people say. 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 Struggling with concentration and first semester thought maybe b/c wasn't hearing it all but 2nd semester did on line where could adjust volume and limit other distractions and still struggling to focus and gether work done. -encouraged her to use hearing aid and FM system if she has issues -fu with audiology-to schedule as hasn't been in several years -see plan re: adhd -will cont to monitor and support Assessment & Plan (09/13/2021 10:20 PM EDT): Currently refusing to wear hearing aid b/c she feels like she hear ok; per mom misses 30% of what people say; doing much better this year and now w/ just 504 plan b/c refusing services on IEP and still doing well. -encouraged her to use hearing aid and FM system if she has issues -fu with audiology-to schedule as hasn't been in several years -cont with 504 plan -will cont to monitor and support Assessment & Plan (07/20/2020 10:18 PM EDT): Currently refusing to wear hearing aid b/c she feels like she hear ok; per mom misses 30% of what people say; doing much better this year and now w/ just 504 plan b/c refusing services on IEP and still doing well. Has been remote so can turn up volume a lot and not as distracted by other sounds b/c at home in her quiet room -encouraged her to use hearing aid and FM system if she has issues when returns to school -fu with audiology -cont with 504 plan -will cont to monitor and support Assessment & Plan (07/09/2019 11:01 AM EDT): Currently refusing to wear hearing aid b/c she feels like she hear ok; per mom misses 30% of what people say; doing much better this year and now w/ just 504 plan b/c refusing services on IEP and still doing well -encouraged her to use hearing aid and FM system if she has issues -fu with audiology -cont with 504 plan -will cont to monitor and support Assessment & Plan (05/22/2018 10:11 PM EST): Currently refusing to wear hearing aid b/c she feels like she hear ok; per mom misses 30% of what people say -strongly encouraged her to use hearing aid and FM system -fu with audiology -cont with IEP -will cont to monitor and support Resolved Problems Problem Noted Date Diagnosed Date Resolved Date Sleep difficulties 02/13/2018 1 Overview (02/13/2018): 07/13-snoring and restless sleep; no sleep apnea; taking iron supplementation; sleep study periodic limb movements but no apnea; ENT following Assessment & Plan (07/09/2019 9:38 PM EDT): Sleeping better overall but legs have been more restless. No longer snoring -will check cbc and ferritin and call mom with results -cont to work on good sleep hygiene Assessment & Plan (05/22/2018 2:25 PM EST): Overall sleeping better but tired and napping during weekdays and sleeping in on weekends. No longer with Excessive movements at night clinically and no snoring. Phone on in room -encouraged her to turn all electronics off at night -discussed sleep hygiene -to try to go bed earlier and avoid napping on school days -try to keep similar schedule on weekends and weekdays -will cont to monitor and support Assessment & Plan (02/17/2018 10:55 PM EDT): Overall sleeping better but tired and napping during weekdays and sleeping in on weekends. No longer with Excessive movements at night clinically and no snoring. Phone on in room -encouraged her to turn all electronics off at night -discussed sleep hygiene -to try to go bed earlier and avoid napping on school days -try to keep similar schedule on weekends and weekdays -will cont to monitor and support Moderate left ankle sprain 07/18/2017 1 Overweight 04/08/2017 09/13/2021 Overview (07/13/2019): 07/16-nl lipid panel Assessment & Plan (07/20/2020 10:16 PM EDT): Wt>ht; lost 10lb in past year; eating more healthy and trying to exercise more; not worried about weight or body image; no s/s of eating disorder -reinforced healthy eating, portion sizes, and increased activity -cont lots of water and limit juice/soda -will cont to support Assessment & Plan (07/09/2019 9:39 PM EDT): Wt>ht -reinforced healthy eating, portion sizes, and increased activity -cont lots of water and limit juice/soda -will check lipid panel -will cont to support Assessment & Plan (05/22/2018 10:08 PM EST): Wt>ht -reinforced healthy eating, portion sizes, and increased activity -cont lots of water and limit juice/soda -will check lipid panel with next set of labs -will cont to support Periodic limb movement disorder 04/08/2017 07/20/2020 Overview (07/13/2019): 07/13-on sleep study; on iron 01/14-nl ferritin; improved; off iron 07/16-nl ferritin; off iron Assessment & Plan (07/09/2019 9:39 PM EDT): Happening more frequently over the past month. Tried restart iron but upset her stomach -cont to encourage iron rich foods -will check cbc and ferritin and call mom w/ results -cont to monitor and call if worse Assessment & Plan (05/22/2018 10:09 PM EST): Improved clinically and off iron; ferritin stable fall 2017 -cont to encourage iron rich foods -cont to monitor and call if worse Assessment & Plan (02/17/2018 10:54 PM EDT): Improved clinically and off iron -will check ferritin today Immunizations Immunization Administration Dates Next Due COVID-19 (Pre-02/18) Pfizer Vaccine, mRNA, PF 08/28/2020,08/06/2020 DTaP 09/16/2008, 5,02/24/2004,12/26,2003 HPV,quadrivalent 12/06/2016,03/19/2016, 6 HPV9 12/06/2016 Hepatitis A, ped/adol, 2 dose 12/06/2016, 016 Hepatitis B 02/24/2004,2003,2003 Hib,PRP-T 11/28/2004, 4,2003,10/25 INFLUENZA, SPLIT VIRUS, TRIVALENT PF 02/19/2014 INFLUENZA, SPLIT VIRUS, TRIV ALENT W/ PRESERVATIVE IM 02/03/2013,03/04/2012,02/10/2009 Influenza Quadrivalent Prese rvative Free IM 05/05/2021,04/20/2020,07/09/2019,03/14,02/14/2016 Influenza Quadrivalent w/ Pr eservative IM 03/02/2015 MMR 03/13/2005,11/28/2004 Meningococcal MCV4P 04/20/2020,08/30/2015 Pneumococcal conjugate, PCV 7 03/13/2005 ,02/24/2004,2003,10/25 Polio, Unspecified Formulation 9,02/24/2004,2003,10/25 Rabies Fibroblast Culture 09/12/2024,01/2025,09/01/2024,08/29 Rabies Immune Globulin 08/29/2024 Tdap 08/29/2024,09/01/2014 Varicella 11/28/2011,03/13/2005 Family History Medical History Relation Comments Allergic rhinitis Father Asthma Father Hyperlipidemia Maternal Grandfather Hypertension Maternal Grandfather Hyperlipidemia Maternal Grandmother Hypertension Maternal Grandmother Migraines Mother Thyroid disease Mother Hyperlipidemia Paternal Grandfather Hypertension Paternal Grandfather Hyperlipidemia Paternal Grandmother Hypertension Paternal Grandmother Multiple sclerosis Paternal Grandmother Relation Status Comments Brother Alive Father Alive Maternal Grandfather Maternal Grandmother Mother Alive Paternal Grandfather Paternal Grandmother Social History Tobacco Use Types Packs/Day Years Used Date Smoking Tobacco: Never Smokeless Tobacco: Never Tobacco Cessation:Counseling Given: Not Answered Alcohol Use Standard Drinks/Week Comments No 0 (1 standard drink = 0.6 oz pur e alcohol) Child or Family Care Answer Date Record ed Do you have problems with on e of the following making it difficult for you to work, study, or receive health care? No 11/20/2022 Education Answer Date Recorded Are you interested in more education? Not on billy e 11/24/2024 Are you concerned about learning? Not on file 11/24/2024 No 11/24/2024 No 11/24/2024 Food Answer Date Recorded Within the past 6 months we worried whether our food would run out before we got money to buy more. Never True 08/29/2024 Within the past 6 months the food we bought just didn't last and we didn't have enough money to get more. Never True Residential Stability Answer Date Recor ded What is your housing situation today? I have lashanda quintanilla 08/29/2024 How many times have you move d in the past 12 months? Zero (I did not move) 08/29/2024 Paying for Meds Answer Date Recorded Do you have trouble paying for medicines? No 08/29/2024 Paying Utility Bills Answer Date Record ed Do you have trouble paying your heating or elect ricity bill? No 08/29/2024 Transportation Answer Date Recorded Has the lack of transportati on kept you from medical appointments or from getting medications? No 08/29/2024 Unemployment Answer Date Recorded Are you currently unemployed or working on a part-time or temporary basis, and looking for work? No 08/07/2021 Digital Access Answer Date Recorded No 08/29/2024 Yes 08/29/2024 Do you have reliable internet access at home? Ye s 08/29/2024 Do you have a device (e.g., phone, tablet, computer) with a working camera? Yes 08/29/2024 Intimate Partner Violence Answer Date R ecorded Are you denied basic needs s uch as food, clothing, or medical care? No 08/29/2024 In the past 12 months have y ou been in a relationship with a person who hurts, threatens, or tries to control you? No 08/29/2024 Are you denied basic needs s uch as food, clothing, or medical care? No 08/29/2024 In the past 12 months have y ou been in a relationship with a person who hurts, threatens, or tries to control you? No 08/29/2024 Comments Unknown Sex and Gender Information Value Date Recorded Sex Assigned at Not on file Legal Sex Female 4:46 PM EDT Gender Identity Not on file Sexual Orientation Not on file Last Filed Vital Signs Vital Sign Reading Time Taken Comments Blood Pressure 100/59 09/12/2024 1:11 PM EDT Pulse 79 09/12/2024 1:11 PM EDT Temperature 36.8 C (98.3 F) 09/12/2024 1:11 PM EDT Respiratory Rate 18 09/12/2024 1:11 PM EDT Oxygen Saturation 99% 09/12/2024 1:11 PM EDT Inhaled Oxygen Concentration - - Weight 79.4 kg (175 lb) 09/12/2024 1:11 PM EDT Height 162.6 cm (5' 4 ) 09/12/2024 1:11 PM EDT Body Mass Index 30.04 09/12/2024 1:11 PM EDT Plan of Treatment Upcoming Encounters Date Type Department Care Team (Late st Contact Info) Description 01/13/2026 11:00 AM EDT Office Visit [facility] [address] [place] [address] Alexander Cervantes, ADVANCED PRACTICE PROVIDER [address] [place] [address] [email or web address] Health Maintenance Due Date Last Done Comments PEDIATRIC ASTHMA CONTROL SIMONE T (ACT) 2007 MENINGOCOCCAL VACCINES (B) ( 1 of 2 - Standard) 2019 PNEUMOCOCCAL VACCINES (0-49 years) (1 of 2 - PCV) 08/23/2022 03/13/2005, 02/24/2004, 2003, Additional history exists CHLAMYDIA SCREENING 11/21/2023 11/20/2022, 09/13/2021, 07/20/2020 DEPRESSION SCREENING 11/21/2023 11/20/2022, 09/14/19 22 COVID-19 VACCINE (2023-2 5 season) 2023 05/05/2021, 08/28/2020, 08/06/2020 PAP SMEAR 08/23/2024 SMOKING Hx and SMOKELESS TOB ACCO SCREENING 09/01/2025 09/01/2024 Adult Td,Tdap Booster 08/29/2034 08/29/2024, 015 COMBINED DTaP,Tdap,Td (8 - T d or Tdap) 08/29/2034 08/29/2024, 09/01/2014, 09/16/2008, Additional history exists HIB VACCINES Completed 11/28/2004, 01/28, 2003, Additional history exists MMR VACCINES Completed 03/13/2005, 11/28/2004 HEPATITIS A VACCINES Completed 12/06/2016, 03/19/20 16 HPV VACCINES Completed 12/06/2016, 11/27, 03/19/2016, Additional history exists MENINGOCOCCAL VACCINES (ACWY) Completed 04/20/2020, 08/30/2015 ADOLESCENT UNIVERSAL LIPID SCREENING Completed 12/07/2022, 07/09/2019 HEPATITIS C SCREENING Completed 12/07/2022 HIV ONE-TIME SCREENING (18-6 5 YEARS) Completed 12/07/2022 Medical Devices Not on file Procedures Procedure Name Priority Date/Time Associated Diagnosis Comments LIPID PANEL Routine 12/07/2022 1:36 PM EDT Fatigue, unspecified type HEPATITIS C ANTIBODY, QUALITATIVE Routine 12/07/2022 1:36 PM EDT Need for hepatitis C screening test CHLAMYDIA TRACHOMATIS AND NEISSERIA GONORRHOEAE NUCLEIC ACID DETECTION Routine 11/20/2022 2:52 PM EDT Fatigue, unspecified type from Last 3 Months or Most Recently Relevant to Health Maintenance Results * Hepatitis C antibody, qualitative (12/07/2022 1:36 PM EDT) HCV NON-REACTIV E NON-REACTI VE [facility] Blood 12/07/2022 1:36 PM EDT 12/07/2022 1:46 PM EDT Tracie Bill MD LAB BLOOD ORDERABLES Fin al Result [facility] [address] [place] [address], [place] [id number] * (ABNORMAL) Lipid panel (12/07/2022 1:36 PM EDT) HDL 60 mg/dL [facility] Comment: Interpretation <40 mg/dL: Low HDL cholesterol (major risk factor for CHD) Greater than or equal to 60 mg/dL: High HDL cholesterol ( negative risk factor for CHD) HDL - cholesterol is affected by a number of factors, e.g. smoking, excerise, hormones, sex and age. CHOLESTEROL 186 0 - 240 mg/dL [facility] TRIGLYCERIDES 89 30 - 160 mg/dL [facility] LDL 108 50 - 129 mg/dL [facility] Comment: LDL levels in terms of risk for coronary heart disease: <100 mg/dL: Optimal 100-129 mg/dL: Near or above optimal 130-159 mg/dL: Borderline high 160-189 mg/dL: High >190 mg/dL: Very High CARDIAC RISK RATIO 3.1(L) 3.3 - 4.4 [facility] Blood 12/07/2022 1:36 PM EDT 12/07/2022 1:46 PM EDT us Tracie Bill MD LAB BLOOD ORDERABLES Fin al Result Performing Organization Address [facility] Co de Phone Number [address] [address] * Chlamydia Trachomatis and Neisseria Gonorrhoeae Nucleic Acid Detection (11/20/2022 2:52 PM EDT) CHLAMYDIA TRACHOMATIS Not Detected Not Detected [facility] NEISERIA GONORRHOEAE Not Detected Not Detected [facility] SPECIMEN TYPE URINE [facility] Urine (Urine) 11/20/2022 2:5 2 PM EDT 11/20/2022 3:05 PM EDT us Tracie Bill MD NON CULTURE MICROBIOLOGY Final Result Performing Organization Address City/[facility]/ZIP Co de Phone Number [address] [phone] from Last 3 Months or Most Recently Relevant to Health Maintenance Insurance [facility] PPO OUT [facility] PPO OUT [facility]PO [facility] PPO CROSS [facility] PPO CROSS OUT OF STATE PPO WORKERS COMPENSATION Care Teams Violent Crimes Detective Relationship Specialty Start Date End Date Tracie Bill MD [address] [place] [address] [email or web address] PCP - General Pediatrics 02/11/18 Additional Source Comments The information contained in this document represents components of the legal health record. It is not the complete legal health record.[facility]
--- OUTSIDE RECORDS SUMMARY | 2024-12-14 15:49 | XMS_ITS | Encounter Summary ---
Author Organization [facility] Address [address] [place] [address] Phone Care Team Providers Care Order Analyst Name Role Phone Sara Vera MD Primary Care Provider [phone] Reason for Visit * Reason Comments Med Refill Encounter Details Date Type Department Care Team (Late st Contact Info) Description 11/27/2024 Refill [facility] [address] [place] [address] Aarti Marquez MD [address] [place] [address] DUB (dysfunctional uterine bleeding) Social History Tobacco Use Types Packs/Day Years Used Date Smoking Tobacco: Never Assessed Comments Unknown Sex and Gender Information Value Date Recorded Sex Assigned at Not on file Legal Sex Female 4:28 PM EDT Gender Identity Not on file Sexual Orientation Not on file documented as of this encounter Miscellaneous Notes * Telephone Encounter - Kim Wright LPN - 11/27/2024 10:31 AM EDT duplicate documented in this encounter Plan of Treatment Not on file documented as of this encounter Visit Diagnoses Diagnosis DUB (dysfunctional uterine bleeding) Other disorder of menstruation and other abnormal bleeding from female genital tract documented in this encounter Care Teams Order Analyst Relationship Specialty Start Date End Date Sara Vera MD [address] [facility] [address] [place] [address] PCP - General Pediatrics 07/24/24 documented as of this encounter
== END 2024-12-14 16:11 | disposition home or self-care (01) ==
PROVIDERS: PCP Pediatrics; Visit Provider Physician Assistant
DX: R19.7 Diarrhea, unspecified (principal)